=== PATIENT | male | born 1990 | race Caucasian/White ===

== ENCOUNTER 2018-08-05 01:42 | Emergency (ER) | payer SELFPAY ==
[~2018-08-05] VITALS: Ht 188 cm; Wt 82.1 kg
[2018-08-05 01:55] VITALS: Ht 188 cm; Wt 82.1 kg
[2018-08-05 03:28] VITALS: BP 125/75
== END 2018-08-05 03:28 | disposition home or self-care (01) ==
LOC: ED 01:42
DX: A64 Unspecified sexually transmitted disease (principal)
CPT/HCPCS: 87491; 87591; J0696

== ENCOUNTER 2018-10-09 18:20 | Emergency (ER) | payer SELFPAY ==
[~2018-10-09] VITALS: Ht 180.3 cm; Wt 90.3 kg
[2018-10-09 18:55] VITALS: Ht 180.3 cm; Wt 90.3 kg
[2018-10-09 19:51] VITALS: BP 153/39
== END 2018-10-09 19:51 | disposition home or self-care (01) ==
LOC: ED 18:20
DX: N34.2 Other urethritis (principal)
CPT/HCPCS: 87491; 87591; J0696

== ENCOUNTER 2018-10-21 00:01 | Emergency (ER) | payer SELFPAY ==
[~2018-10-21] VITALS: Ht 188 cm; Wt 89.8 kg
[2018-10-21 00:05] VITALS: Ht 188 cm; Wt 89.8 kg
[2018-10-21 00:46] VITALS: BP 141/87
== END 2018-10-21 00:46 | disposition home or self-care (01) ==
LOC: ED 00:01
DX: A64 Unspecified sexually transmitted disease (principal)
CPT/HCPCS: 87491; 87591; J0696

== ENCOUNTER 2019-01-13 00:38 | Emergency (ER) | payer SELFPAY ==
[~2019-01-13] VITALS: Ht 188 cm; Wt 91.6 kg
[2019-01-13 00:56] VITALS: Ht 188 cm; Wt 91.6 kg
[2019-01-13 02:01] VITALS: BP 139/81
== END 2019-01-13 02:01 | disposition home or self-care (01) ==
LOC: ED 00:38
DX: A64 Unspecified sexually transmitted disease (principal)
CPT/HCPCS: 87491; 87591; J0696